=== PATIENT | female | born 1995 | race Caucasian/White ===

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

== ENCOUNTER 2017-02-07 18:34 | Emergency (ER) | payer MEDICAID ==
[2017-02-07 18:50] VITALS: BP 97/67; PULSE 79; RESP 12; TEMP 98.8; O2SAT 95
--- NOTE | 2017-02-07 19:13 | EDPHY ---
H & P Stated Complaint: sore throat, painful lymph glands n right neck Time Seen by Provider: 02/07/17 19:03 HPI/ROS: CHIEF COMPLAINT: Sore throat HISTORY OF PRESENT ILLNESS: The patient is a 21-year-old female who reports history of frequent strep throat who comes to the emergency department complaining of a sore throat and lymphadenopathy. No fevers or chills. No nausea vomiting. No cough. No sinus congestion. No ear aches. REVIEW OF SYSTEMS: Constitutional: See HPI EENTM: See HPI Respiratory: denies: cough, shortness of breath Cardiac: denies: chest pain, irregular heart rate, lightheadedness, palpitations Gastrointestinal/Abdominal: denies: abdominal pain, diarrhea, nausea, vomiting, blood streaked stools Genitourinary: denies: dysuria, frequency, hematuria, pain Musculoskeletal: denies: joint pain, muscle pain Skin: denies: lesions, rash, jaundice, bruising Neurological: denies: headache, numbness, paresthesia, tingling, dizziness, weakness Hematologic/Lymphatic: denies: blood clots, easy bleeding, easy bruising Immunologic/allergic: denies: HIV/AIDS, transplant EXAM: GENERAL: Well-appearing, well-nourished and in no acute distress. HEAD: Atraumatic, normocephalic. EYES: Pupils equal round and reactive to light, extraocular movements intact, sclera anicteric, conjunctiva are normal. ENT: TMs normal, nares patent, oropharynx erythematous with mild exudates. Moist mucous membranes. NECK: Normal range of motion, supple without lymphadenopathy or JVD. LUNGS: Breath sounds clear to auscultation bilaterally and equal. No wheezes rales or rhonchi. HEART: Regular rate and rhythm without murmurs, rubs or gallops. ABDOMEN: Soft, nontender, normoactive bowel sounds. No guarding, no rebound. No masses appreciated. BACK: No CVA tenderness, no spinal tenderness, step-offs or deformities EXTREMITIES: Normal range of motion, no pitting or edema. No clubbing or cyanosis. NEUROLOGICAL: Cranial nerves II through XII grossly intact. Normal speech, normal gait. 5/5 strength, normal movement in all extremities, normal sensation PSYCH: Normal mood, normal affect. SKIN: Warm, dry, normal turgor, no visible rashes or lesions. Source: Patient Exam Limitations: No limitations - Personal History LMP (Females 10-55): Extended Cycle BCP/Inj Current Tetanus Diphtheria and Acellular Pertussis (TDAP): Yes Tetanus Vaccine Date: 1999 - Medical/Surgical History Hx Asthma: No Hx Chronic Respiratory Disease: No Hx Diabetes: No Hx Cardiac Disease: No Hx Renal Disease: No Hx Cirrhosis: No Hx Alcoholism: No Hx HIV/AIDS: No Hx Splenectomy or Spleen Trauma: No Other PMH: denies - Family History Significant Family History: No pertinent family hx - Social History Smoking Status: Current some day smoker Alcohol Use: Sober Drug Use: None Constitutional: Initial Vital Signs Temperature (C) 37.1 C 02/07/17 18:46 Heart Rate 79 02/07/17 18:46 Respiratory Rate 12 02/07/17 18:46 Blood Pressure 97/67 L 02/07/17 18:46 O2 Sat (%) 95 02/07/17 18:46 O2 Delivery Mode Room Air Allergies/Adverse Reactions: azithromycin [From Zithromax] Allergy (Intermediate, Verified 02/07/17 18:45) amoxicillin [Amoxicillin] Allergy (Verified 02/07/17 18:45) Rash Home Medications: Medication Instructions Recorded Clindamycin HCl [Clindamycin] 300 mg PO TID #30 cap 02/07/17 Medical Decision Making ED Course/Re-evaluation: The patient has symptoms consistent with strep throat. She is asking for antibiotics because she states she was test negative initially and then the next day comes back positive. I will start her on a Z-Boom. She is happy with this plan and declines further workup or testing. She is allergic to azithromycin amoxicillin. We will try clindamycin. Differential Diagnosis: Partial list of the Differential diagnosis considered include but were not limited to; viral pharyngitis, strep throat, and although unlikely based on the history and physical exam, I also considered pneumonia, meningitis, sepsis. I discussed these differential diagnoses and the plan with the patient as well as the usual and expected course. The patient understands that the diagnosis is provisional and that in medicine we are not always correct and that further workup is often warranted. Usual and customary warnings were given. All of the patient's questions were answered. The patient was instructed to return to the emergency department should the symptoms at all worsen or return, otherwise to followup with the physician as we discussed. - Data Points Laboratory Results: 02/07/17 02/07/17 Unknown 18:50 Group A Strep Screen NEGATIVE (NEGATIVE) Group A Strep DNA Pending Departure - Departure Disposition: Home, Routine, Self-Care Clinical Impression: Acute pharyngitis Qualifiers: Pharyngitis/tonsillitis etiology: unspecified etiology Qualified Code(s): J02.9 - Acute pharyngitis, unspecified Condition: Fair Instructions: Pharyngitis (ED) Referrals: Elmer Neely MD [Primary Care Provider] - As per Instructions Stand Alone Forms: Work Excuse Prescriptions: Clindamycin HCl [Clindamycin] 300 mg PO TID #30 cap
== END 2017-02-07 19:22 | disposition home or self-care (01) ==
LOC: CED 18:34
DX: J02.9 Acute pharyngitis, unspecified (principal); F17.200 Nicotine dependence, unspecified, uncomplicated
CPT/HCPCS: 87880-PO

== ENCOUNTER 2017-06-03 03:31 | Emergency (ER) | payer MEDICAID ==
[2017-06-03 03:46] VITALS: RESP 16; TEMP 97.7; O2SAT 98
--- NOTE | 2017-06-03 04:02 | EDPHY ---
H & P Time Seen by Provider: 06/03/17 03:45 HPI/ROS: CHIEF COMPLAINT: Dysuria and Frequency HISTORY OF PRESENT ILLNESS: 22-year-old female good health. had some mild dysuria approximately 24 hours ago. However reoccurred some 3 hours ago. Thus the evaluation the wee hours of the morning. She was having some trouble sleeping due to the frequency. Fever none Chills none Rigors none flank pain none abdominal pain none Exposure: She is sexually active without control. She does not use condoms. She is scheduled on June 12 to have a physical and having normal her PCP's. She denies any vaginal discharge. Declines any STD testing at this time, She was on Depo-Provera for a couple years. Then for approximately year been on PCP's until recently as noted above. Her menses since finishing the PCP's have been irregular - last menses was approximately 2 weeks ago and then she started noticing blood today. REVIEW OF SYSTEMS: Gastrointestinal: No vomiting, no abdominal pain. Emergency Medical Technician Basic: No discharge or lesions. Smoking Status: Current some day smoker Physical Exam: Gen: Afebrile. WD. WN. Nontoxic. Abdomen: . Nondistended. Soft and nontender. No CVA tenderness Constitutional: Initial Vital Signs Temperature (C) 36.5 C 06/03/17 03:44 Heart Rate 99 06/03/17 03:44 Respiratory Rate 16 06/03/17 03:44 Blood Pressure 120/83 H 06/03/17 03:44 O2 Sat (%) 98 06/03/17 03:44 O2 Delivery Mode Room Air Allergies/Adverse Reactions: azithromycin [From Zithromax] Allergy (Intermediate, Verified 06/03/17 03:46) Hives amoxicillin [Amoxicillin] Allergy (Verified 06/03/17 03:46) Rash Home Medications: Medication Instructions Recorded Nitrofurantoin Macrocrystal 100 mg PO BID #10 capsule 06/03/17 [Nitrofurantoin] Phenazopyridine HCl [Pyridium] 200 mg PO TID #6 tab 06/03/17 Medical Decision Making ED Course/Re-evaluation: Urinalysis is suspicious for cystitis: 2+ nitrates Leukocyte esterase positive Trace epithelial cells 1+ bacteria Specimen will be cultured, local biogram Bactrim resistance at 30% = thus Nitrofurantoin = 96% sensitivity UA preg neg, high SG. Differential Diagnosis: Differential diagnosis includes but is not limited to: Urinary tract infection, pyelonephritis, cystitis, ureterolithiasis, kidney stone, urinary retention]. - Data Points Laboratory Results: 06/03/17 06/03/17 03:39 03:39 Urine Color YELLOW Urine Appearance CLEAR Urine pH 6.5 (5.0-7.5) Ur Specific [place] >= 1.030 (1.002-1.030) Urine Protein 2+ H (NEGATIVE) Urine Ketones NEGATIVE (NEGATIVE) Urine Blood 2+ H (NEGATIVE) Urine Nitrate POSITIVE H (NEGATIVE) Urine Bilirubin NEGATIVE (NEGATIVE) Urine Urobilinogen 0.2 EU EU (0.2-1.0) Ur Leukocyte Esterase 2+ H (NEGATIVE) Urine RBC 3-5 /hpf H /hpf (0-3) Urine WBC 5-10 /hpf H /hpf (0-3) Ur Epithelial Cells TRACE /lpf /lpf (NONE-1+) Urine Bacteria 1+ /hpf H /hpf (NONE SEEN) Urine Mucus 2+ /lpf H /lpf (NONE-1+) Urine Glucose NEGATIVE (NEGATIVE) Urine Test NEGATIVE Departure - Departure Disposition: Home, Routine, Self-Care Clinical Impression: Cystitis Condition: Good Instructions: Sulfamethoxazole/Trimethoprim (By mouth), Nitrofurantoin (By mouth), Phenazopyridine (By mouth), Urinary Tract Infection in Women (ED) Additional Instructions: Empty her bladder frequently. The best way to do this is to drink extra fluids. Return if he develops flank pain or fever or nausea or vomiting The urine specimen will be cultured. If antibiotics are need to be changed be contacted Use condoms with spermicide all agent until your next appointment as scheduled on June 12. Prescriptions: Nitrofurantoin Macrocrystal [Nitrofurantoin] 100 mg PO BID #10 capsule Phenazopyridine HCl [Pyridium] 200 mg PO TID #6 tab
[2017-06-03] MEDS ORDERED: SULFAMET/TMP DS PREPACK#2 BTL TAKEHOME ONE (04:14)
[2017-06-03] MEDS ORDERED: NITROFURANTOIN 100MG PREPACK#2 BTL TAKEHOME ONE (04:25)
[2017-06-03] MEDS ORDERED: PHENAZOPYRIDINE HCL 200 MG TAB PO ONE (04:26)
[2017-06-03 04:44] VITALS: BP 118/76; PULSE 89
== END 2017-06-03 04:35 | disposition home or self-care (01) ==
LOC: CED 03:31
DX: N30.90 Cystitis, unspecified without hematuria (principal); B96.20 Unspecified Escherichia coli [E. coli] as the cause of diseases classified elsewhere; F17.200 Nicotine dependence, unspecified, uncomplicated
CPT/HCPCS: 81003-PO; 81015-PO; 81025-PO

== ENCOUNTER 2017-07-24 16:10 | Emergency (ER) | payer MEDICAID ==
[2017-07-24 16:26] VITALS: RESP 16; TEMP 97.3
[2017-07-24] MEDS ORDERED: CEPHALEXIN 500 MG CAP PO ONE (16:32)
[2017-07-24] MEDS ORDERED: PHENAZOPYRIDINE HCL 200 MG TAB PO ONE (16:32)
--- NOTE | 2017-07-24 16:32 | EDPHY ---
H & P Stated Complaint: fEW DAYS AGO FREQENCY,URGENCY AND DYSURIA WITH ABD PAIN Time Seen by Provider: 07/24/17 16:25 HPI/ROS: CHIEF COMPLAINT: Dysuria, frequency HISTORY OF PRESENT ILLNESS: The patient is a 22-year-old female who comes to the emergency department complaining of dysuria and frequency that she states feels similar to her previous urinary tract infection in May. She states that she has been using meth and read online that meth may cause more frequent urinary tract infections. She denies risk of . She states that she is on control. She has not had any vaginal bleeding or discharge. No GI symptoms. She has not had a fever. She complains of intermittent cramping in her right lower quadrant but states that it currently is not bothering her. No flank pain or back pain. REVIEW OF SYSTEMS: Constitutional: denies: chills, fever, recent illness, recent injury EENTM: denies: blurred vision, double vision, nose congestion Respiratory: denies: cough, shortness of breath Cardiac: denies: chest pain, irregular heart rate, lightheadedness, palpitations Gastrointestinal/Abdominal: denies: abdominal pain, diarrhea, nausea, vomiting, blood streaked stools Genitourinary: See HPI Musculoskeletal: denies: joint pain, muscle pain Skin: denies: lesions, rash, jaundice, bruising Neurological: denies: headache, numbness, paresthesia, tingling, dizziness, weakness Hematologic/Lymphatic: denies: blood clots, easy bleeding, easy bruising Immunologic/allergic: denies: HIV/AIDS, transplant EXAM: GENERAL: Well-appearing, well-nourished and in no acute distress. HEAD: Atraumatic, normocephalic. EYES: Pupils equal round and reactive to light, extraocular movements intact, sclera anicteric, conjunctiva are normal. ENT: TMs normal, nares patent, oropharynx clear without exudates. Moist mucous membranes. NECK: Normal range of motion, supple without lymphadenopathy or JVD. LUNGS: Breath sounds clear to auscultation bilaterally and equal. No wheezes rales or rhonchi. HEART: Regular rate and rhythm without murmurs, rubs or gallops. ABDOMEN: Soft, nontender, normoactive bowel sounds. No guarding, no rebound. No masses appreciated. BACK: No CVA tenderness, no spinal tenderness, step-offs or deformities EXTREMITIES: Normal range of motion, no pitting or edema. No clubbing or cyanosis. NEUROLOGICAL: Cranial nerves II through XII grossly intact. Normal speech, normal gait. 5/5 strength, normal movement in all extremities, normal sensation PSYCH: Normal mood, normal affect. SKIN: Warm, dry, normal turgor, no visible rashes or lesions. Source: Patient Exam Limitations: No limitations - Personal History LMP (Females 10-55): 22-28 Days Ago Tetanus Vaccine Date: 1999 - Medical/Surgical History Hx Asthma: No Hx Chronic Respiratory Disease: No Hx Diabetes: No Hx Cardiac Disease: No Hx Renal Disease: No Hx Cirrhosis: No Hx Alcoholism: No Hx HIV/AIDS: No Hx Splenectomy or Spleen Trauma: No Other PMH: mED HX-NONE. sURG-NONE - Family History Significant Family History: No pertinent family hx - Social History Smoking Status: Current some day smoker Alcohol Use: Occasionally Drug Use: Other Constitutional: Initial Vital Signs Temperature (C) 36.3 C 07/24/17 16:20 Heart Rate 97 07/24/17 16:20 Respiratory Rate 16 07/24/17 16:20 Blood Pressure 127/77 H 07/24/17 16:20 O2 Sat (%) 97 07/24/17 16:20 O2 Delivery Mode Room Air Allergies/Adverse Reactions: azithromycin [From Zithromax] Allergy (Intermediate, Verified 07/24/17 16:19) Hives amoxicillin [Amoxicillin] Allergy (Verified 07/24/17 16:19) Rash Home Medications: Medication Instructions Recorded Cephalexin [Keflex] 500 mg PO TID #21 cap 07/24/17 Phenazopyridine HCl [Pyridium] 200 mg PO TID #6 tab 07/24/17 Medical Decision Making ED Course/Re-evaluation: I reviewed the patient's previous visit. She had E coli that was sensitive to everything other than penicillin. I will start her on Keflex. Her exam is benign. She is afebrile. Will also treat her with azo for pain control. She is happy with this and declines further workup or testing at this time. We will send her urine for cultures. 5:30 p.m. we discussed the urinalysis. The patient has mild red rash to the dorsum of both hands. This started before she received any medications. She states that she had previously with urine infections as well and it resolved with treatment. We discussed options. She states that Benadryl does not help. It is not warm to the touch. It is not painful. She does state that it happens after she using meth. We discussed possible contaminant of the methamphetamine and encouraged tree to discontinue using meth. Differential Diagnosis: Partial list of the Differential diagnosis considered include but were not limited to; urinary tract infection, pyelonephritis and although unlikely based on the history and physical exam, I also considered ovarian cyst, appendicitis, kidney stone, . I discussed these differential diagnoses and the plan with the patient as well as the usual and expected course. The patient understands that the diagnosis is provisional and that in medicine we are not always correct and that further workup is often warranted. Usual and customary warnings were given. All of the patient's questions were answered. The patient was instructed to return to the emergency department should the symptoms at all worsen or return, otherwise to followup with the physician as we discussed. - Data Points Laboratory Results: 07/24/17 16:05 Urine Color YELLOW Urine Appearance HAZY Urine pH 5.5 (5.0-7.5) Ur Specific [place] 1.010 (1.002-1.030) Urine Protein NEGATIVE (NEGATIVE) Urine Ketones NEGATIVE (NEGATIVE) Urine Blood NEGATIVE (NEGATIVE) Urine Nitrate NEGATIVE (NEGATIVE) Urine Bilirubin NEGATIVE (NEGATIVE) Urine Urobilinogen 0.2 EU EU (0.2-1.0) Ur Leukocyte Esterase 2+ H (NEGATIVE) Urine RBC 1-3 /hpf /hpf (0-3) Urine WBC 5-10 /hpf H /hpf (0-3) Ur Epithelial Cells TRACE /lpf /lpf (NONE-1+) Urine Mucus TRACE /lpf /lpf (NONE-1+) Urine Glucose NEGATIVE (NEGATIVE) Medications Given: Discontinued Medications Cephalexin HCl (Keflex) 500 mg PO EDNOW ONE PRN Reason: Protocol Stop: 07/24/17 16:33 Last Admin: 07/24/17 17:12 Dose: 500 mg Phenazopyridine HCl (Pyridium) 200 mg PO EDNOW ONE Stop: 07/24/17 16:33 Last Admin: 07/24/17 17:10 Dose: 200 mg Departure - Departure Disposition: Home, Routine, Self-Care Clinical Impression: Urinary tract infection Qualifiers: Urinary tract infection type: acute cystitis Hematuria presence: without hematuria Qualified Code(s): N30.00 - Acute cystitis without hematuria Condition: Fair Instructions: Cephalexin (By mouth), Phenazopyridine (By mouth), Urinary Tract Infection in Women (ED) Referrals: Elmer Neely MD [Primary Care Provider] - As per Instructions Prescriptions: Cephalexin [Keflex] 500 mg PO TID #21 cap Phenazopyridine HCl [Pyridium] 200 mg PO TID #6 tab
[2017-07-24 18:00] VITALS: BP 129/80; PULSE 82; O2SAT 96
== END 2017-07-24 17:44 | disposition home or self-care (01) ==
LOC: CED 16:10
DX: N30.00 Acute cystitis without hematuria (principal); F17.200 Nicotine dependence, unspecified, uncomplicated; B96.89 Other specified bacterial agents as the cause of diseases classified elsewhere
CPT/HCPCS: 81003-PO; 81015-PO

== ENCOUNTER 2017-08-04 14:16 | Emergency (ER) | payer MEDICAID ==
[2017-08-04 14:35] VITALS: RESP 18; TEMP 98
--- NOTE | 2017-08-04 14:47 | EDPHY ---
H & P Stated Complaint: here last week for UTI - on antibotics with lower abd pain/ bloody stool x 1 Source: Patient - Personal History LMP (Females 10-55): Irregular Current Tetanus Diphtheria and Acellular Pertussis (TDAP): Yes Tetanus Vaccine Date: 1999 - Medical/Surgical History Hx Asthma: No Hx Chronic Respiratory Disease: No Hx Diabetes: No Hx Cardiac Disease: No Hx Renal Disease: No Hx Cirrhosis: No Hx Alcoholism: No Hx HIV/AIDS: No Hx Splenectomy or Spleen Trauma: No Other PMH: mED HX-NONE. sURG-NONE - Social History Smoking Status: Current some day smoker Constitutional: Initial Vital Signs Temperature (C) 36.6 C 08/04/17 14:31 Heart Rate 85 08/04/17 14:31 Respiratory Rate 18 08/04/17 14:31 Blood Pressure 111/88 H 08/04/17 14:31 O2 Sat (%) 96 08/04/17 14:31 O2 Delivery Mode Room Air Allergies/Adverse Reactions: azithromycin [From Zithromax] Allergy (Intermediate, Verified 07/24/17 16:19) Hives amoxicillin [Amoxicillin] Allergy (Verified 07/24/17 16:19) Rash Home Medications: Medication Instructions Recorded Cephalexin [Keflex] 500 mg PO TID #21 cap 07/24/17 Phenazopyridine HCl [Pyridium] 200 mg PO TID #6 tab 07/24/17 Departure - Departure Referrals: Pablo Lan MD [Primary Care Provider] - As per Instructions
--- NOTE | 2017-08-04 14:55 | EDPHY ---
H & P Stated Complaint: here last week for UTI - on antibotics with lower abd pain/ bloody stool x 1 - Personal History LMP (Females 10-55): Irregular Current Tetanus Diphtheria and Acellular Pertussis (TDAP): Yes Tetanus Vaccine Date: 1999 - Medical/Surgical History Hx Asthma: No Hx Chronic Respiratory Disease: No Hx Diabetes: No Hx Cardiac Disease: No Hx Renal Disease: No Hx Cirrhosis: No Hx Alcoholism: No Hx HIV/AIDS: No Hx Splenectomy or Spleen Trauma: No Other PMH: mED HX-NONE. sURG-NONE - Social History Smoking Status: Current some day smoker <Venancio Arteaga - Last Filed: 08/04/17 14:52> Source: Patient <Reji Lewis - Last Filed: 08/04/17 16:23> Constitutional: Initial Vital Signs Temperature (C) 36.6 C 08/04/17 14:31 Heart Rate 85 08/04/17 14:31 Respiratory Rate 18 08/04/17 14:31 Blood Pressure 111/88 H 08/04/17 14:31 O2 Sat (%) 96 08/04/17 14:31 O2 Delivery Mode Room Air Allergies/Adverse Reactions: azithromycin [From Zithromax] Allergy (Intermediate, Verified 07/24/17 16:19) Hives amoxicillin [Amoxicillin] Allergy (Verified 07/24/17 16:19) Rash Home Medications: Medication Instructions Recorded Cephalexin [Keflex] 500 mg PO TID #21 cap 07/24/17 Phenazopyridine HCl [Pyridium] 200 mg PO TID #6 tab 07/24/17 Bisacodyl [Dulcolax] 5 mg PO BID #10 tablet. 08/04/17 Bisacodyl/Naph,Mb-Db [Fleet Prep 1 each MC BID #1 kit 08/04/17 Kit #1] Polyethylene Glycol 3350 [Miralax 17 gm PO DAILY #4 pkt 08/04/17 17 gm (*)] Medical Decision Making <Venancio Arteaga - Last Filed: 08/04/17 14:52> <Reji Lewis - Last Filed: 08/04/17 16:23> - Diagnostics Imaging Results: Imaging Impressions Abdomen CT 08/04/17 15:05 Impression: 1. Normal CT appearance of the appendix. 2. Constipation, particularly pronounced in the distal descending colon and rectosigmoid, with some mild posterior rectal-presacral edema. 3. Query mild gastroduodenal dysmotile syndrome. 4. Normal appearance of the appendix. Findings were discussed with Reji Lewis MD at 16:13, on 08/04/2017. ED Course/Re-evaluation: CHIEF COMPLAINT: Abdominal pain and diarrhea HISTORY OF PRESENT ILLNESS: 22-year-old female who was here about a week ago and treated with cephalexin for a documented urinary tract infection. She took her last pill last night. This morning she started to have some diarrhea and pain in her right mid gut. She denies fevers or chills. She denies nausea vomiting. She has not have any more urinary symptoms and believes that it has been improved with the antibiotics. REVIEW OF SYSTEMS: A 10 point review of systems was performed and is negative with the exception of the elements mentioned in the history of present illness. PHYSICAL EXAM: HR, BP, O2 Sat, RR. Temp noted General Appearance: Alert, well hydrated, appropriate, and non-toxic appearing. Head: Atraumatic without scalp tenderness or obvious injury Eyes: Pupils equal, round, reactive to light and accommodation, EOMI, no trauma , no injection. Ears: Clear bilaterally, no perforation, normal landmarks Nose: Atraumatic, no rhinorrhea, clear. Throat: There is no erythema or exudates, no lesions, normal tonsils, mucus membranes moist. Neck: Supple, 2+ carotid upstroke, nontender, no lymphadenopathy. Respiratory: No retractions, no distress, no wheezes, and no accessory muscle use. Lungs are clear to auscultation bilaterally. Cardiovascular: Regular rate and rhythm, no murmurs, rubs, or gallops. Bilateral carotid, radial, dorsalis pedis, and posterior tibial pulses intact. Good capillary refill all extremities. Gastrointestinal: Abdomen is soft, tenderness in the right pericolic gutter area higher than McBurney's point and lower that her gallbladder, non-distended , no masses, no rebound, no guarding, no peritoneal signs. Musculoskeletal: Normal active ROM of all extremities, atraumatic. Neurological: Alert, appropriate, and interactive. The patient has normal DTRs and non-focal cranial nerves, motor, sensory, and cerebellar exam. Skin: No rashes, good turgor, no nodules on palpation. Past medical history: Recent UTI Past surgical history: None Family history: Noncontributory Social history: Single, uses tobacco, uses alcohol, does not abuse drugs, employed DIFFERENTIAL DIAGNOSIS: The differential diagnosis for the patient's abdominal pain included but was not limited to ovarian cyst, pelvic inflammatory disease, ovarian torsion, urinary tract infection, ectopic , cholecystitis, and appendicitis. MEDICAL DECISION MAKING: Fall this patient is not in distress. She does have significant tenderness in the right pericolic gutter area however a very benign McBurney's point and benign right upper quadrant. Since she was just on antibiotics and is having diarrhea it is unclear to me at this time if we need to image the patient. I will order laboratory studies including a since she is unsure if she may be . We will also recheck her urine. We will reassess her abdomen and make a decision regarding imaging. I will turn this patient over to Dr. Lewis to evaluate her laboratory results and reassess her abdomen to make a decision regarding [facility] will imaging. ( Venancio rAteaga) 1535: Patient signed over to me at 3:00 p.m. shift change. I did go and evaluate the patient she is resting comfortably. She has focal right-sided abdominal pain. She does report that it moves up and down her right side. She reports no fever no vomiting. Denies diarrhea. Infection tells me she has been constipated. She salt dark blood around her stool today. Denies urinary symptoms. She is unsure if she is . She reports to me that she did methamphetamine, as well as heroin and last night. 1617: CT scan abdomen pelvis with IV contrast called to me by Dr. Louis Colby : This shows significant constipation with stool in the rectum. However no acute inflammatory process visualized. Normal appendix. Here in emergency room will give a soapsuds enema. Discussed blood work, and CT scan and urine results with the patient. Additional drug screen noted positive for methamphetamine, cocaine and opioids. Recommend refraining from doing these drugs. Especially opioids as this can cause her constipation to be worse. MiraLax prescription given. Additionally she understands return emergency room she develops worsening abdominal pain fever vomiting blood in her stool. 1621: Patient is refusing enema here in the emergency room she would like stool softeners to go home on. I will prescribe MiraLax, Dulcolax a, as well as an enema for home. I have discussed return precautions with her. She understands return emergency room she develops worsening abdominal pain fever vomiting bloody stool. Most likely cause of abdominal pain is severe constipation the setting of polysubstance abuse including IV heroin, cocaine use and methamphetamine. I had recommended the patient she refrain from doing drugs specifically heroin, methamphetamine is very dangerous, and additionally cocaine. Discussed this at length with her she understands. (Reji Lewis) - Data Points Laboratory Results: Laboratory Results 08/04/17 15:15 08/04/17 15:15 08/04/17 08/04/17 08/04/17 15:25 15:15 15:15 WBC RBC Hgb Hct MCV MCH MCHC RDW Plt Count MPV Neut % (Auto) Lymph % (Auto) [place] % (Auto) Eos % (Auto) Baso % (Auto) Nucleat RBC Rel Count Absolute Neuts (auto) Absolute Lymphs (auto) Absolute Monos (auto) Absolute Eos (auto) Absolute Basos (auto) Absolute Nucleated RBC Immature Gran % Immature Gran # Sodium 139 mEq/L mEq/L (134-144) Potassium 3.9 mEq/L mEq/L (3.5-5.2) Chloride 97 mEq/L mEq/L (97-110) Carbon Dioxide 26 mEq/l mEq/l (22-31) Anion Gap 16 mEq/L mEq/L (8-16) BUN 9 mg/dL mg/dL (7-23) Creatinine 0.7 mg/dL mg/dL (0.6-1.0) Estimated GFR > 60 Glucose 98 mg/dL mg/dL (70-100) Calcium 9.8 mg/dL mg/dL (8.5-10.4) Total Bilirubin 0.9 mg/dL mg/dL (0.1-1.4) Conjugated Bilirubin 0.2 mg/dL mg/dL (0.0-0.5) Unconjugated Bilirubin 0.7 mg/dL mg/dL (0.0-1.1) AST 25 IU/L IU/L (14-46) ALT 28 IU/L IU/L (9-52) Alkaline Phosphatase 70 IU/L IU/L (38-126) Total Protein 7.5 g/dL g/dL (6.3-8.2) Albumin 4.2 g/dL g/dL (3.5-5.0) Lipase 39 IU/L IU/L (23-300) Beta HCG, Qual NEGATIVE Urine Color YELLOW Urine Appearance CLEAR Urine pH 8.0 H (5.0-7.5) Ur Specific [place] 1.010 (1.002-1.030) Urine Protein NEGATIVE (NEGATIVE) Urine Ketones NEGATIVE (NEGATIVE) Urine Blood NEGATIVE (NEGATIVE) Urine Nitrate NEGATIVE (NEGATIVE) Urine Bilirubin NEGATIVE (NEGATIVE) Urine Urobilinogen 0.2 EU EU (0.2-1.0) Ur Leukocyte Esterase NEGATIVE (NEGATIVE) Urine Glucose NEGATIVE (NEGATIVE) Urine Opiates Screen NON-NEGATIVE H (NEGATIVE) Urine Barbiturates NEGATIVE (NEGATIVE) Ur Phencyclidine Scrn NEGATIVE (NEGATIVE) Ur Amphetamine Screen NON-NEGATIVE H (NEGATIVE) U Benzodiazepines Scrn NEGATIVE (NEGATIVE) Urine Cocaine Screen NON-NEGATIVE H (NEGATIVE) U Marijuana (THC) Screen NEGATIVE (NEGATIVE) 08/04/17 15:15 WBC 11.25 10^3/uL H 10^3/uL (3.80-9.50) RBC 5.19 10^6/uL 10^6/uL (4.18-5.33) Hgb 15.5 g/dL g/dL (12.6-16.3) Hct 44.2 % % (38.0-47.0) MCV 85.2 fL fL (81.5-99.8) MCH 29.9 pg pg (27.9-34.1) MCHC 35.1 g/dL g/dL (32.4-36.7) RDW 11.6 % % (11.5-15.2) Plt Count 323 10^3/uL 10^3/uL (150-400) MPV 7.8 fL L fL (8.7-11.7) Neut % (Auto) 77.3 % H % (39.3-74.2) Lymph % (Auto) 15.3 % % (15.0-45.0) [place] % (Auto) 6.5 % % (4.5-13.0) Eos % (Auto) 0.2 % L % (0.6-7.6) Baso % (Auto) 0.3 % % (0.3-1.7) Nucleat RBC Rel Count 0.0 % % (0.0-0.2) Absolute Neuts (auto) 8.71 10^3/uL H 10^3/uL (1.70-6.50) Absolute Lymphs (auto) 1.72 10^3/uL 10^3/uL (1.00-3.00) Absolute Monos (auto) 0.73 10^3/uL 10^3/uL (0.30-0.80) Absolute Eos (auto) 0.02 10^3/uL L 10^3/uL (0.03-0.40) Absolute Basos (auto) 0.03 10^3/uL 10^3/uL (0.02-0.10) Absolute Nucleated RBC 0.00 10^3/uL 10^3/uL (0-0.01) Immature Gran % 0.4 % % (0.0-1.1) Immature Gran # 0.04 10^3/uL 10^3/uL (0.00-0.10) Sodium Potassium Chloride Carbon Dioxide Anion Gap BUN Creatinine Estimated GFR Glucose Calcium Total Bilirubin Conjugated Bilirubin Unconjugated Bilirubin AST ALT Alkaline Phosphatase Total Protein Albumin Lipase Beta HCG, Qual Urine Color Urine Appearance Urine pH Ur Specific [place] Urine Protein Urine Ketones Urine Blood Urine Nitrate Urine Bilirubin Urine Urobilinogen Ur Leukocyte Esterase Urine Glucose Urine Opiates Screen Urine Barbiturates Ur Phencyclidine Scrn Ur Amphetamine Screen U Benzodiazepines Scrn Urine Cocaine Screen U Marijuana (THC) Screen Medications Given: Discontinued Medications Sodium Chloride (Ns) 1,000 mls @ 0 mls/hr IV EDNOW ONE; Wide Open PRN Reason: Protocol Stop: 08/04/17 15:02 Last Admin: 08/04/17 15:21 Dose: 1,000 mls Departure <Venancio Arteaga - Last Filed: 08/04/17 14:52> <Reji Lewis - Last Filed: 08/04/17 16:23> - Departure Disposition: Home, Routine, Self-Care Clinical Impression: Polysubstance abuse Abdominal pain Qualifiers: Abdominal location: right upper quadrant Qualified Code(s): R10.11 - Right upper quadrant pain Constipation Qualifiers: Constipation type: other constipation type Qualified Code(s): K59.09 - Other constipation Condition: Good Instructions: Constipation (ED), High Fiber Diet (ED) Additional Instructions: 1. Return emergency room if you have worsening abdominal pain fever vomiting. Referrals: Pablo Lan MD [Primary Care Provider] - As per Instructions Prescriptions: Bisacodyl [Dulcolax] 5 mg PO BID #10 tablet.dr Sood/Jocelynn Arzola [Fleet Prep Kit #1] 1 each MC BID #1 kit Polyethylene Glycol 3350 [Miralax 17 gm (*)] 17 gm PO DAILY #4 pkt
[2017-08-04] MEDS ORDERED: NS 1,000 ML IV ONE (15:01)
[2017-08-04 15:21] LABS: PLATELET COUNT 323 10^3/uL (150-400)
[2017-08-04] MEDS ORDERED: IOPAMIDOL (ISOVUE-300) 100 ML BTL ONE (15:37)
[2017-08-04 16:29] VITALS: BP 124/62; O2SAT 97
[2017-08-04 16:52] VITALS: PULSE 74
== END 2017-08-04 16:51 | disposition home or self-care (01) ==
LOC: CED 14:16
DX: K59.09 Other constipation (principal); F19.10 Other psychoactive substance abuse, uncomplicated; F17.200 Nicotine dependence, unspecified, uncomplicated; E86.9 Volume depletion, unspecified
CPT/HCPCS: 74177-PO; 80048-PO; 80076-PO; 80307-PO; 81003-PO; 83690-PO; 84703-PO; 85025-PO; Q9967

== ENCOUNTER 2017-09-23 09:57 | Emergency (ER) | payer MEDICAID ==
[2017-09-23 10:09] VITALS: RESP 18; TEMP 98
[2017-09-23] MEDS ORDERED: ONDANSETRON 4 MG/2 ML VIAL IVP ONE (10:20)
[2017-09-23] MEDS ORDERED: NS 1,000 ML IV ONE (10:20)
[2017-09-23 10:36] LABS: PLATELET COUNT 264 10^3/uL (150-400)
--- NOTE | 2017-09-23 11:14 | EDPHY ---
H & P Time Seen by Provider: 09/23/17 10:06 HPI/ROS: 22-year-old female presents complaining of right sided abdominal pain for several days. She states she was recently treated for a possible sexually transmitted disease with an injection and doxycycline. She later stated she was told that this was gonorrhea. Review of systems As per [facility] General no fever no chills no weakness HEENT no eye pain no eye discharge. No eye redness, no sore throat Respiratory no cough, no shortness of breath Cardiac no chest pain, no peripheral edema GI positive abdominal pain, no diarrhea, no constipation, no nausea, no vomiting no flank pain, no hematuria, no dysuria Musculoskeletal no myalgias, no joint pain Heme no easy bruising, no easy bleeding Endo no polyuria, no polydipsia Skin no rashes, no pruritus Neuro no syncope, no dizziness, no headaches Psych is no suicidal ideation, no homicidal ideation Past Medical/Surgical History: History of heroin abuse Gonorrhea Social History: History of heroin abuse Smoking Status: Current some day smoker Physical Exam: 22-year-old female alert and oriented no acute distress nontoxic appearance, afebrile HEENT atraumatic normocephalic, extraocular muscles intact, anicteric Oropharynx negative for erythema negative exudate, tolerating her own secretions Neck supple no meningismus Lungs clear to auscultation bilaterally Heart regular rate and rhythm without murmur rub or gallop Abdomen nondistended normoactive bowel sounds , right middle quadrant lateral tenderness to palpation no guarding no rebound No ecchymoses no rash Back no CVA tenderness, no step-offs, no spinal tenderness Extremities no cyanosis clubbing or edema Neuro alert and oriented, no focal deficits Constitutional: Initial Vital Signs Temperature (C) 36.6 C 09/23/17 10:07 Heart Rate 72 09/23/17 10:07 Respiratory Rate 18 09/23/17 10:07 Blood Pressure 152/82 H 09/23/17 10:07 O2 Sat (%) 99 09/23/17 10:07 O2 Delivery Mode Room Air Allergies/Adverse Reactions: azithromycin [From Zithromax] Allergy (Intermediate, Verified 07/24/17 16:19) Hives amoxicillin [Amoxicillin] Allergy (Verified 07/24/17 16:19) Rash Home Medications: Medication Instructions Recorded Doxycycline Calcium 09/23/17 Medical Decision Making ED Course/Re-evaluation: Patient seen and evaluated for right-sided abdominal pain. Labs CBC CMP lipase all within normal limits Ultrasound right upper quadrant negative for cholelithiasis Ultrasound to look at appendix, unable to visualize appendix Patient given 1 L IV normal saline, as well as Zofran 4 mg Patient appears markedly improved Impression Gastritis Plan Discharge home Follow-up primary care physician Differential Diagnosis: Gastroenteritis, gastritis, pancreatitis, cholecystitis, appendicitis, diverticulitis - Data Points Laboratory Results: Laboratory Results 09/23/17 10:33 09/23/17 10:33 Medications Given: Discontinued Medications Sodium Chloride (Ns) 1,000 mls @ 0 mls/hr IV ONCE ONE PRN Reason: Wide Open Stop: 09/23/17 10:21 Last Admin: 09/23/17 10:30 Dose: 1,000 mls Ondansetron HCl (Zofran) 4 mg IVP EDNOW ONE Stop: 09/23/17 10:21 Last Admin: 09/23/17 10:31 Dose: 4 mg Departure - Departure Disposition: Home, Routine, Self-Care Clinical Impression: Abdominal pain Condition: Good Instructions: Abdominal Pain (ED) Referrals: Olive Niño DO [Primary Care Provider] - As per Instructions
[2017-09-23 12:28] VITALS: BP 104/64; PULSE 62; O2SAT 97
== END 2017-09-23 12:25 | disposition home or self-care (01) ==
LOC: CED 09:57
DX: R10.9 Unspecified abdominal pain (principal); F17.200 Nicotine dependence, unspecified, uncomplicated
CPT/HCPCS: 76705-PO; 80053-PO; 81003-PO; 81025-PO; 83690-PO; 85025-PO; 96374; J2405

== ENCOUNTER 2018-06-19 16:31 | Emergency (ER) | payer MEDICAID ==
--- NOTE | 2018-06-19 16:42 | EDPHY ---
H & P Time Seen by Provider: 06/19/18 16:42 HPI/ROS: HPI CHIEF COMPLAINT: Possible STI. HISTORY OF PRESENT ILLNESS: 23-year-old female, otherwise healthy denies any medical history presents emergency room stating that she is concerned she may have an STI. She states her significant other that she has intercourse with was recently diagnosed with chlamydia. She complains of burning when she urinates over the last 24 hr. Concerned that she may have an STI. Denies any fever, abdominal pain, flank pain, back pain, denies any vaginal discharge. Denies being . Is noted she is allergic to azithromycin breaks out in a rash. Past Medical History: Denies significant medical history Past Surgical History: Denies significant surgical history Social History: Smokes tobacco, Vape, marijuana, alcohol, denies other illicit drugs. Family History: Noncontributory. ROS REVIEW OF SYSTEMS: 10 Systems were reviewed and negative with the exception of the elements mentioned in the history of present illness. Exam Constitutional appears well nontoxic no acute distress, triage nursing summary reviewed, vital signs reviewed, awake/alert. Eyes normal conjunctivae and sclera, EOMI, PERRLA. HENT normal inspection, atraumatic, moist mucus membranes, no epistaxis, neck supple/ no meningismus, no raccoon eyes. Respiratory clear to auscultation bilaterally, normal breath sounds, no respiratory distress, no wheezing. Cardiovascular rate normal, regular rhythm, no murmur, no edema, distal pulses normal. Gastrointestinal soft, non-tender, no rebound, no guarding, normal bowel sounds, no distension, no pulsatile mass. Genitourinary no CVA tenderness. Musculoskeletal no midline vertebral tenderness, full range of motion, no calf swelling, no tenderness of extremities, no meningismus, good pulses, neurovascularly intact. Skin pink, warm, & dry, no rash, skin atraumatic. Neurologic awake, alert and oriented x 3, AAOx3, moves all 4 extremities equally, motor intact, sensory intact, CN II-XII intact, normal cerebellar, normal vision, normal speech. Psychiatric normal mood/affect. Heme/Lymph/Immune no lymphadenopathy. Differential Diagnosis: Includes but is not limited to in a particular order UTI, cystitis, STI Medical Decision Making: Plan for this patient check clean catch urine for urinalysis for UTI, dirty catch urine for STI, urine test. Re-evaluation: Long discussion with the patient about impaired treatment she would like to be empirically treated but will send urine test. She understands the STI testing will not come back immediately tonight. Will give IM Rocephin 250 mg for gonorrhea treatment. Additionally given her azithromycin reaction will give doxycycline for 1 week. Return precautions discussed with the patient she develops worsening symptoms of urinary symptoms including fever, abdominal pain, vomiting or not doing well return to the ER she understands. Urinalysis point care dip and urinalysis dip negative. Formal UA pending at lab as well as urine STI testing. Source: Patient - Personal History Tetanus Vaccine Date: 1999 - Medical/Surgical History Hx Asthma: No Hx Chronic Respiratory Disease: No Hx Diabetes: No Hx Cardiac Disease: No Hx Renal Disease: No Hx Cirrhosis: No Hx Alcoholism: No Hx HIV/AIDS: No Hx Splenectomy or Spleen Trauma: No Other PMH: mED HX-NONE. sURG-NONE - Social History Smoking Status: Current some day smoker Constitutional: Initial Vital Signs Temperature (C) 36.6 C 06/19/18 16:44 Heart Rate 81 06/19/18 16:44 Respiratory Rate 20 06/19/18 16:44 Blood Pressure 124/80 H 06/19/18 16:44 O2 Sat (%) 97 06/19/18 16:44 O2 Delivery Mode Room Air Allergies/Adverse Reactions: azithromycin [From Zithromax] Allergy (Intermediate, Verified 07/24/17 16:19) Hives amoxicillin [Amoxicillin] Allergy (Verified 07/24/17 16:19) Rash Home Medications: Medication Instructions Recorded Doxycycline Hyclate 100 mg PO BID #14 capsule 06/19/18 Departure - Departure Disposition: Home, Routine, Self-Care Clinical Impression: STI (sexually transmitted infection) Condition: Good Instructions: Chlamydia (ED), Sexually Transmitted Diseases (ED), Condom Use ( ED), Safe Sex (ED) Referrals: NONE *PRIMARY CARE P,. [Primary Care Provider] - As per Instructions Prescriptions: Doxycycline Hyclate 100 mg PO BID #14 capsule
[2018-06-19] MEDS ORDERED: cefTRIAXone 250 MG VIAL IM ONE (16:45)
[2018-06-19] MEDS ORDERED: DOXYCYCLINE HYCLATE 100 MG CAP/TAB PO ONE (16:47)
[2018-06-19] MEDS ORDERED: LIDOCAINE 1% 5 ML SDV ONE (17:11)
[2018-06-19 17:50] VITALS: BP 120/74
== END 2018-06-19 17:48 | disposition home or self-care (01) ==
LOC: CED 16:31
DX: A56.8 Sexually transmitted chlamydial infection of other sites (principal)
CPT/HCPCS: J0696